=== PATIENT | male | born 1935 | race Caucasian/White ===

== ENCOUNTER → 2016-08-31 | Outpatient (CLI) | payer MEDICARE, OTHER | LOC: MW.CHORTHO 08:00 | PROVIDERS: ATTEND Physician Assistant | DX: M17.11 Unilateral primary osteoarthritis, right knee (principal) | CPT/HCPCS: 20610; G0463; J1040 ==

== ENCOUNTER → 2016-09-04 | Outpatient (CLI) | payer MEDICARE, OTHER | LOC: MW.CHORTHO 08:00 | PROVIDERS: ATTEND Physician Assistant | DX: M17.11 Unilateral primary osteoarthritis, right knee (principal) | CPT/HCPCS: 20610; G0463; J7326 ==

== ENCOUNTER 2019-03-18 22:05 | Observation (INO) | payer MEDICARE, OTHER ==
[2019-03-18] MEDS ORDERED: Sodium Chloride 0.9% 10 ML Syringe FLUSH PRN (22:20)
[2019-03-18] MEDS ORDERED: Sodium Chloride 0.9% 2.5 ML Syringe FLUSH PRN (22:20)
--- NOTE | 2019-03-18 22:22 | EDM.PDOC ---
ED HPI GENERAL MEDICAL PROBLEM - General Chief Complaint: Neurological Problem Stated Complaint: LOSS OF CONSCIOUS Time Seen by Provider: 03/18/19 22:08 - History of Present Illness INITIAL COMMENTS - FREE TEXT/NARRATIVE: HISTORY AND PHYSICAL: History of present illness: The patient is a 83-year-old male with a history of Parkinson's hypertension and hypercholesterolemia who presents via EMS after having an episode of syncope without trauma per the feeling hot and having too small episodes of diarrhea earlier today. According to the he saw the dentist earlier today and had a right upper molar extracted and did well but he did have 2 loose stools today. This evening he was seated and said he felt very hot they took his sweater off and then he had a several second reflux of consciousness without trauma and he seemed very sweaty. He came to and EMS was dispatched and they noticed that he was very drowsy and low on his consciousness level but they also noticed that he was bradycardic. He received 1 mg of atropine per them and has had a normal heart rate since that time. He had an episode of vomiting on arrival here to the ED but denies any abdominal pain or nausea currently. He denies any pain to his tooth extraction site and he was not given any pain medications per the at bedside. He had no complaints earlier of chest pain shortness of breath abdominal pain nausea vomiting fevers or chills and has had no upper respiratory symptoms. Here in the ED the patient follows commands but is somewhat drowsy and denies any complaints of pain currently Review of systems: As per history of present illness and below otherwise all systems reviewed and negative. Past medical history: As per history of present illness and as reviewed below otherwise noncontributory. Surgical history: As per history of present illness and as reviewed below otherwise noncontributory. Social history: No reported history of drug or alcohol abuse. Family history: As per history of present illness and as reviewed below otherwise noncontributory. Physical exam: General: Well-developed well-nourished mildly overweight man who is nontoxic and follows commands and is arousable. The patient's Ann Coma Scale is 13 by me. Patient has overall pale appearance HEENT: Atraumatic, normocephalic, pupils reactive, negative for conjunctival pallor or scleral icterus, mucous membranes tacky, throat clear, neck supple, nontender, trachea midline. At the right upper molar area there is an extraction site from the patient's tooth procedure today which is clean and dry without any bleeding or gum swelling and there is no evidence of any facial swelling nor any tenderness in this region. Lungs: Clear to auscultation with slightly diminished breath sounds in the bases , breath sounds equal bilaterally, chest nontender. Heart: S1S2, regular in rhythm on my evaluation and heart sounds are somewhat distant and hard to appreciate any murmurs, there are no overt negative for clicks, rubs, or JVD. Abdomen: Soft, nondistended, nontender. Negative for masses or hepatosplenomegaly. Negative for costovertebral tenderness. Pelvis: Stable nontender. Genitourinary: Deferred. Rectal: Deferred. Extremities: Atraumatic, negative for cords or calf pain. Neurovascular unremarkable. Neuro: Awake, alert, oriented but the patient is drowsy. Cranial nerves II through XII unremarkable. Cerebellum unremarkable. Motor and sensory unremarkable throughout. Exam nonfocal. Patient has good strength throughout 5/ 5 including supervisor mold cleaning and storage dorsi and plantar flexion all bilaterally Skin: There is no evidence of any rashes or lesions noted diaphoresis and turgor is normal Diagnostics: EKG CBC CMP troponin UA with reflex INR amylase lipase TSH lactic acid influenza chest x-ray CT scan of the head Therapeutics: IV O2 monitor gentle IV fluids Zofran Patient feels significantly improved here and is much more alert and interactive and is coloring looks better. is also stating that he does look improved. As I cannot explain tinnitus events and he did have a brief syncopal event I will speak with the hospitalist about observation on telemetry. [id number]: Case was discussed with Dr. Vyas who accepts the patient for observation admission. Impression: Episode of recurrent syncope, bradycardia by history resolved, altered mental status improved Definitive disposition and diagnosis as appropriate pending reevaluation and review of above. - Related Data Allergies Allergy/AdvReac Type Severity Reaction Status Date / Time No Known Allergies Allergy Verified 03/18/19 22:17 Home Meds: Home Meds Carbidopa/Levodopa [Carbidopa-Levodopa 25-100 Tab] 1 tab PO 5XDAY 03/18/19 [ History] Donepezil [Aricept] 1 tab PO BID 03/18/19 [History] Entacapone 1 tab PO 5XDAY 03/18/19 [History] Metoprolol Tartrate 50 mg PO DAILY 03/18/19 [History] QUEtiapine [SEROquel] 25 mg PO DAILY 03/18/19 [History] atorvaSTATin [Lipitor] 10 mg PO BEDTIME 03/18/19 [History] Past Medical History HEENT History: Reports: Macular Degeneration Cardiovascular History: Reports: Hypertension Musculoskeletal History: Reports: Osteoarthritis Neurological History: Reports: Parkinson's - Past Surgical History GI Surgical History: Reports: Hernia Repair/Other ED ROS GENERAL - Review of Systems Review Of Systems: Comprehensive ROS is negative, except as noted in HPI. ED EXAM, GENERAL - Physical Exam Exam: See Below (see Dictation) Course - Vital Signs Last Recorded V/S: Last Vital Signs Temp 35.3 C 03/18/19 22:05 Pulse 84 03/18/19 23:56 Resp 18 03/18/19 23:56 BP 133/65 03/18/19 23:56 Pulse Ox 99 03/18/19 23:41 - Orders/Labs/Meds Orders: Active Orders 24 hr Category Date Time Status Patient Status [ADT] Stat ADT 03/18/19 23:51 Active Cardiac Monitoring [RC] . DIRECTED Care 03/18/19 22:19 Active Oxygen Therapy, ED [RC] ASDIRECTED Care 03/18/19 22:19 Active Pulse Oximetry [RC] ASDIRECTED Care 03/18/19 22:19 Active Sodium Chloride 0.9% [Normal Saline] 1,000 ml Med 03/18/19 22:30 Active IV ASDIRECTED Sodium Chloride 0.9% [Saline Flush] Med 03/18/19 22:20 Active 10 ml FLUSH ASDIRECTED PRN Sodium Chloride 0.9% [Saline Flush] Med 03/18/19 22:20 Active 2.5 ml FLUSH ASDIRECTED PRN Saline Lock Insert [OM.PC] Stat Oth 03/18/19 22:19 Ordered Medication Orders Sodium Chloride (Normal Saline) 1,000 mls @ 100 mls/hr IV ASDIRECTED THIERRY Last Infusion: 03/18/19 23:12 Dose: 100 mls/hr Admin: 03/18/19 22:25 Dose: 100 mls/hr Sodium Chloride (Saline Flush) 10 ml FLUSH ASDIRECTED PRN PRN Reason: Keep Vein Open Sodium Chloride (Saline Flush) 2.5 ml FLUSH ASDIRECTED PRN PRN Reason: Keep Vein Open Labs: Laboratory Tests 03/18/19 03/18/19 03/18/19 Range/Units 22:15 22:15 22:15 WBC 9.84 (4.0-11.0) K/uL RBC 5.14 (4.50-5.90) M/uL Hgb 16.3 (13.0-17.0) g/dL Hct 47.5 (38.0-50.0) % MCV 92.4 (80.0-98.0) fL MCH 31.7 (27.0-32.0) pg MCHC 34.3 (31.0-37.0) g/dL RDW Std Deviation 51.1 (28.0-62.0) fl RDW Coeff of Alea 15 (11.0-15.0) % Plt Count 642 H (150-400) K/uL MPV 9.80 (7.40-12.00) fL Neut % (Auto) 72.7 (48.0-80.0) % Lymph % (Auto) 14.7 L (16.0-40.0) % Meagher % (Auto) 8.6 (0.0-15.0) % Eos % (Auto) 3.3 (0.0-7.0) % Baso % (Auto) 0.7 (0.0-1.5) % Neut # (Auto) 7.2 H (1.4-5.7) K/uL Lymph # (Auto) 1.5 (0.6-2.4) K/uL Meagher # (Auto) 0.9 H (0.0-0.8) K/uL Eos # (Auto) 0.3 (0.0-0.7) K/uL Baso # (Auto) 0.1 (0.0-0.1) K/uL Nucleated RBC % 0.0 /100WBC Nucleated RBCs # 0 K/uL INR 1.11 Lactate 1.8 (0.20-2.00) mmol/L Sodium (136-148) mmol/L Potassium (3.5-5.1) mmol/L Chloride (98-107) mmol/L Carbon Dioxide (21.0-32.0) mmol/L BUN (7.0-18.0) mg/dL Creatinine (0.8-1.3) mg/dL Est Cr Clr Drug Dosing mL/min Estimated GFR (MDRD) ml/min Glucose (74-106) mg/dL Calcium (8.5-10.1) mg/dL Total Bilirubin (0.2-1.0) mg/dL AST (15-37) IU/L ALT (14-63) IU/L Alkaline Phosphatase (46-116) U/L Troponin I (0.000-0.056) ng/mL Total Protein (6.4-8.2) g/dL Albumin (3.4-5.0) g/dL Globulin (2.6-4.0) g/dL Albumin/Globulin Ratio (0.9-1.6) Amylase (25-115) U/L Lipase (73-393) U/L TSH 3rd Generation (0.36-3.74) uIU/mL Urine Color Urine Appearance Urine pH (5.0-8.0) Ur Specific [place] (1.001-1.035) Urine Protein (NEGATIVE) mg/dL Urine Glucose (UA) (NEGATIVE) mg/dL Urine Ketones (NEGATIVE) mg/dL Urine Occult Blood (NEGATIVE) Urine Nitrite (NEGATIVE) Urine Bilirubin (NEGATIVE) Urine Urobilinogen (<2.0) EU/dL Ur Leukocyte Esterase (NEGATIVE) 03/18/19 03/18/19 Range/Units 22:15 23:00 WBC (4.0-11.0) K/uL RBC (4.50-5.90) M/uL Hgb (13.0-17.0) g/dL Hct (38.0-50.0) % MCV (80.0-98.0) fL MCH (27.0-32.0) pg MCHC (31.0-37.0) g/dL RDW Std Deviation (28.0-62.0) fl RDW Coeff of Alea (11.0-15.0) % Plt Count (150-400) K/uL MPV (7.40-12.00) fL Neut % (Auto) (48.0-80.0) % Lymph % (Auto) (16.0-40.0) % Meagher % (Auto) (0.0-15.0) % Eos % (Auto) (0.0-7.0) % Baso % (Auto) (0.0-1.5) % Neut # (Auto) (1.4-5.7) K/uL Lymph # (Auto) (0.6-2.4) K/uL Meagher # (Auto) (0.0-0.8) K/uL Eos # (Auto) (0.0-0.7) K/uL Baso # (Auto) (0.0-0.1) K/uL Nucleated RBC % /100WBC Nucleated RBCs # K/uL INR Lactate (0.20-2.00) mmol/L Sodium 140 (136-148) mmol/L Potassium 3.8 (3.5-5.1) mmol/L Chloride 106 (98-107) mmol/L Carbon Dioxide 22.2 (21.0-32.0) mmol/L BUN 12 (7.0-18.0) mg/dL Creatinine 1.1 (0.8-1.3) mg/dL Est Cr Clr Drug Dosing 52.29 mL/min Estimated GFR (MDRD) > 60.0 ml/min Glucose 141 H (74-106) mg/dL Calcium 8.4 L (8.5-10.1) mg/dL Total Bilirubin 0.8 (0.2-1.0) mg/dL AST 29 (15-37) IU/L ALT 8 L (14-63) IU/L Alkaline Phosphatase 85 (46-116) U/L Troponin I < 0.050 (0.000-0.056) ng/mL Total Protein 6.8 (6.4-8.2) g/dL Albumin 3.8 (3.4-5.0) g/dL Globulin 3.0 (2.6-4.0) g/dL Albumin/Globulin Ratio 1.3 (0.9-1.6) Amylase 65 (25-115) U/L Lipase 156 (73-393) U/L TSH 3rd Generation 2.84 (0.36-3.74) uIU/mL Urine Color YELLOW Urine Appearance CLEAR Urine pH 5.5 (5.0-8.0) Ur Specific [place] 1.025 (1.001-1.035) Urine Protein NEGATIVE (NEGATIVE) mg/dL Urine Glucose (UA) NEGATIVE (NEGATIVE) mg/dL Urine Ketones TRACE H (NEGATIVE) mg/dL Urine Occult Blood NEGATIVE (NEGATIVE) Urine Nitrite NEGATIVE (NEGATIVE) Urine Bilirubin NEGATIVE (NEGATIVE) Urine Urobilinogen 0.2 (<2.0) EU/dL Ur Leukocyte Esterase NEGATIVE (NEGATIVE) Meds: Medications Generic Name Dose Route Start Last Admin Trade Name Freq PRN Reason Stop Dose Admin Sodium Chloride 1,000 mls @ 100 mls/hr 03/18/19 22:30 03/18/19 23:12 Normal Saline IV 100 mls/hr ASDIRECTED THIERRY Infusion Sodium Chloride 10 ml 03/18/19 22:20 Saline Flush FLUSH ASDIRECTED PRN Keep Vein Open Sodium Chloride 2.5 ml 03/18/19 22:20 Saline Flush FLUSH ASDIRECTED PRN Keep Vein Open Discontinued Medications Generic Name Dose Route Start Last Admin Trade Name Freq PRN Reason Stop Dose Admin Ondansetron HCl 4 mg 03/18/19 22:24 03/18/19 22:57 Zofran IVPUSH 03/18/19 22:25 4 mg ONETIME ONE Administration Departure - Departure Time of Disposition: 23:51 Disposition: Refer to Observation Condition: Good Clinical Impression: Syncope Qualifiers: Syncope type: unspecified Qualified Code(s): R55 - Syncope and collapse Altered mental status Qualifiers: Altered mental status type: unspecified Qualified Code(s): R41.82 - Altered mental status, unspecified - Discharge Information Referrals: Jose M Navas MD [Primary Care Provider] - Forms: ED Department Discharge - My Orders Last 24 Hours: My Active Orders 03/18/19 22:19 Cardiac Monitoring [RC] . DIRECTED Oxygen Therapy, ED [RC] ASDIRECTED Pulse Oximetry [RC] ASDIRECTED Saline Lock Insert [OM.PC] Stat 03/18/19 22:20 Sodium Chloride 0.9% [Saline Flush] 10 ml FLUSH ASDIRECTED PRN Sodium Chloride 0.9% [Saline Flush] 2.5 ml FLUSH ASDIRECTED PRN 03/18/19 22:30 Sodium Chloride 0.9% [Normal Saline] 1,000 ml IV ASDIRECTED 03/18/19 23:51 Patient Status [ADT] Stat - Assessment/Plan Last 24 Hours: My Active Orders 03/18/19 22:19 Cardiac Monitoring [RC] . DIRECTED Oxygen Therapy, ED [RC] ASDIRECTED Pulse Oximetry [RC] ASDIRECTED Saline Lock Insert [OM.PC] Stat 03/18/19 22:20 Sodium Chloride 0.9% [Saline Flush] 10 ml FLUSH ASDIRECTED PRN Sodium Chloride 0.9% [Saline Flush] 2.5 ml FLUSH ASDIRECTED PRN 03/18/19 22:30 Sodium Chloride 0.9% [Normal Saline] 1,000 ml IV ASDIRECTED 03/18/19 23:51 Patient Status [ADT] Stat
[2019-03-18] MEDS ORDERED: Ondansetron 4 MG/2 ML SDV IVPUSH ONE (22:24)
[2019-03-18] MEDS: Sodium Chloride 0.9% 1,000 ML IV SCH (22:25)
[2019-03-18 22:59] LABS: BLOOD UREA NITROGEN,BUN 12 mg/dL (7.0-18.0); CARBON DIOXIDE,CO2 22.2 mmol/L (21.0-32.0); CHLORIDE,CL 106 mmol/L (98-107); GLUCOSE RANDOM 141 mg/dL (74-106); LIPASE 156 U/L (73-393); POTASSIUM,K 3.8 mmol/L (3.5-5.1); SODIUM,NA 140 mmol/L (136-148)
--- NOTE | 2019-03-18 23:01 | CR ---
INDICATION: Pain, shortness of breath, vomiting. COMPARISON: None available. FINDINGS: An erect single view of the chest was obtained at 22 49 hours. There is mild linear density in the right lung base consistent with atelectasis. There is mild eventration of the left hemidiaphragm. The rest of the chest is clear. The heart is mildly enlarged. The mediastinum is otherwise normal in appearance. The osseous structures are normal in appearance for the patient`s age. IMPRESSION: Mild linear atelectasis in the right lung base. Mild cardiomegaly. Dictated by Ishmael Guevara MD @ Mar 18 2019 10:58PM Signed by Dr. Ishmael Guevara @ Mar 18 2019 10:59PM
--- NOTE | 2019-03-18 23:04 | CT ---
INDICATION: Loss of consciousness. COMPARISON: None available. TECHNIQUE: CT examination of the head was performed with 3 mm thick axial sections without intravenous contrast. Images were obtained from the vertex of the skull through the skull base, and I examined the images with the brain and bone windows. Please note that all CT scans at this facility use dose modulation, iterative reconstruction, and/or weight-based dosing when appropriate to reduce radiation dose to as low as reasonably achievable. FINDINGS: : The brain is normal in appearance for the patient`s age on today`s study, with no sign of mass lesion, mass effect, hemorrhage, or edema. There is moderate dilatation of the ventricles and sulci representing age-appropriate atrophy. There is mild periventricular and subcortical white matter hypodensity from age appropriate small vessel ischemia. The visualized portions of the orbits are normal in appearance. The visualized portions of the paranasal sinuses and mastoids are clear. The osseous structures are normal in their appearance with no sign of abnormality in the skull base or calvarium. IMPRESSION: Normal noncontrast CT of the head for the patient`s age. Moderate, age-appropriate atrophy and mild, age-appropriate small-vessel ischemic changes. Please note that all CT scans at this facility use dose modulation, iterative reconstruction, and/or weight-based dosing when appropriate to reduce radiation dose to as low as reasonably achievable. Dictated by Ishmael Guevara MD @ Mar 18 2019 10:59PM Signed by Dr. Ishmael Guevara @ Mar 18 2019 11:02PM
[2019-03-19 05:48] LABS: CARBON DIOXIDE,CO2 24.6 mmol/L (21.0-32.0); POTASSIUM,K 5.8 mmol/L (3.5-5.1)
[2019-03-19] MEDS: Sodium Chloride 0.9% 1,000 ML IV SCH (06:33)
--- NOTE | 2019-03-19 08:10 | PCM.HP.2 ---
H&P History of Present Illness - General Date of Service: 03/19/19 Admit Problem/Dx: Admission Diagnosis/Problem Admission Diagnosis/Problem Syncope Source of Information: Patient History Limitations: Reports: No Limitations - History of Present Illness Initial Comments - Free Text/Narative: This 83 year old male with pmh of HTN and Parkinson's disease presented to the ED via EMS due to an event of syncope at home. He is unable to articulate what happened, at bedside to help. She he had a tooth extracted during the morning and then wsa more tired than normal in the evening. They got him in his pajamas and then were sitting back in his chair. He started complaining of being flushed and she noticed he was a little lethargic and out of it. Not entirely sure he passed out, she feels he was alert still just slow and lethargic to respond. EMS was called, upon arrival per their report, he was noted to be bradycardic and was given Atropine. states she had just given him his meds. He did have some nausea and emesis and also reports a couple softer stools earlier in the day. She denies any other changes recently with his mentation. Reports this morning, he is back at baseline. In the ED ,9840 and platelets 642. CXR shows linear atelectaiss R L base and cardiomegaly. Headt CT negative. VS stable. UA negative. He was admitted for near syncope. PCP, Dr Navas. - Related Data Allergies/Adverse Reactions: Allergies Allergy/AdvReac Type Severity Reaction Status Date / Time No Known Allergies Allergy Verified 03/19/19 00:55 Home Medications: Home Meds Carbidopa/Levodopa [Carbidopa-Levodopa 25-100 Tab] 25 - 100 mg PO 5XDAY [History] Donepezil [Aricept] 5 mg PO DAILY@1200 03/18/19 [History] Entacapone 200 mg PO 5XDAY 03/18/19 [History] QUEtiapine [SEROquel] 50 mg PO BEDTIME 03/18/19 [History] atorvaSTATin [Lipitor] 10 mg PO BEDTIME 03/18/19 [History] Aspirin [Adult Low Dose Aspirin EC] 81 mg PO DAILY 03/19/19 [History] Donepezil [Aricept] 5 mg PO BEDTIME PRN 03/19/19 [History] Metoprolol Succinate [Toprol XL 50mg] 50 mg PO DAILY 03/19/19 [History] Rasagiline Mesylate 1 mg PO DAILY@1200 03/19/19 [History] Past Medical History HEENT History: Reports: Macular Degeneration Cardiovascular History: Reports: High Cholesterol, Hypertension, Syncope Respiratory History: Reports: None Gastrointestinal History: Reports: Other (See Below) Other Gastrointestinal History: Hernia Genitourinary History: Reports: None Musculoskeletal History: Reports: Osteoarthritis Neurological History: Reports: Parkinson's Psychiatric History: Reports: None Endocrine/Metabolic History: Reports: None Insulin Pump Model and Quantitative Analyst Developer: None Hematologic History: Reports: None Immunologic History: Reports: None Oncologic (Cancer) History: Reports: None Dermatologic History: Reports: None - Infectious Disease History Infectious Disease History: Reports: None - Past Surgical History Head Surgeries/Procedures: Reports: None HEENT Surgical History: Reports: Other (See Below) Other HEENT Surgeries/Procedures: Tooth extraction GI Surgical History: Reports: Hernia Repair/Other Social & Family History - Family History Family Medical History: Noncontributory - Tobacco Use Smoking Status *Q: Never Smoker Second Hand Smoke Exposure: No - Caffeine Use Caffeine Use: Reports: Coffee, Soda - Recreational Drug Use Recreational Drug Use: No H&P Review of Systems - Review of Systems: Review Of Systems: See Below (From mostly) General: Reports: No Symptoms. Denies: Fever, Chills, Malaise, Weakness HEENT: Reports: No Symptoms Pulmonary: Reports: No Symptoms. Denies: Shortness of Breath Cardiovascular: Reports: Syncope. Denies: Chest Pain Gastrointestinal: Reports: No Symptoms, Nausea (at home, not currently), Vomiting. Denies: Abdominal Pain, Black Stool, Bloody Stool, Diarrhea Genitourinary: Reports: No Symptoms Musculoskeletal: Reports: No Symptoms. Denies: Neck Pain Skin: Reports: No Symptoms Psychiatric: Reports: No Symptoms Neurological: Reports: No Symptoms Hematologic/Lymphatic: Reports: No Symptoms Immunologic: Reports: No Symptoms Exam - Exam Exam: See Below - Vital Signs Vital Signs: Last Vital Signs Temp 98.4 F 03/19/19 07:52 Pulse 74 03/19/19 07:52 Resp 20 03/19/19 07:52 BP 177/82 H 03/19/19 07:52 Pulse Ox 94 L 03/19/19 07:52 Weight: 90.718 kg - Exam General: Alert, Oriented, Cooperative HEENT: Conjunctiva Clear, Mucosa Moist & [place], Posterior Pharynx Clear Lungs: Clear to Auscultation, Normal Respiratory Effort Cardiovascular: Regular Rate, Regular Rhythm. No: Systolic Murmur GI/Abdominal Exam: Normal Bowel Sounds, Soft, Non-Tender Extremities: Normal Inspection, Normal Range of Motion, Non-Tender, Pedal Edema (+1 pitting to trace on feet) Neuro Extensive - Mental Status: Alert, Other (masked facies) Psychiatric: Alert, Normal Affect, Normal Mood - Patient Data Lab Results Last 24 hrs: Laboratory Results - last 24 hr 03/18/19 03/18/19 03/18/19 Range/Units 22:15 22:15 22:15 WBC 9.84 (4.0-11.0) K/uL RBC 5.14 (4.50-5.90) M/uL Hgb 16.3 (13.0-17.0) g/dL Hct 47.5 (38.0-50.0) % MCV 92.4 (80.0-98.0) fL MCH 31.7 (27.0-32.0) pg MCHC 34.3 (31.0-37.0) g/dL RDW Std Deviation 51.1 (28.0-62.0) fl RDW Coeff of Alea 15 (11.0-15.0) % Plt Count 642 H (150-400) K/uL MPV 9.80 (7.40-12.00) fL Neut % (Auto) 72.7 (48.0-80.0) % Lymph % (Auto) 14.7 L (16.0-40.0) % [place] % (Auto) 8.6 (0.0-15.0) % Eos % (Auto) 3.3 (0.0-7.0) % Baso % (Auto) 0.7 (0.0-1.5) % Neut # (Auto) 7.2 H (1.4-5.7) K/uL Lymph # (Auto) 1.5 (0.6-2.4) K/uL [place] # (Auto) 0.9 H (0.0-0.8) K/uL Eos # (Auto) 0.3 (0.0-0.7) K/uL Baso # (Auto) 0.1 (0.0-0.1) K/uL Nucleated RBC % 0.0 /100WBC Nucleated RBCs # 0 K/uL INR 1.11 Lactate 1.8 (0.20-2.00) mmol/L Sodium (136-148) mmol/L Potassium (3.5-5.1) mmol/L Chloride (98-107) mmol/L Carbon Dioxide (21.0-32.0) mmol/L BUN (7.0-18.0) mg/dL Creatinine (0.8-1.3) mg/dL Est Cr Clr Drug Dosing mL/min Estimated GFR (MDRD) ml/min Glucose (74-106) mg/dL Calcium (8.5-10.1) mg/dL Total Bilirubin (0.2-1.0) mg/dL AST (15-37) IU/L ALT (14-63) IU/L Alkaline Phosphatase (46-116) U/L Troponin I (0.000-0.056) ng/mL Total Protein (6.4-8.2) g/dL Albumin (3.4-5.0) g/dL Globulin (2.6-4.0) g/dL Albumin/Globulin Ratio (0.9-1.6) Amylase (25-115) U/L Lipase (73-393) U/L TSH 3rd Generation (0.36-3.74) uIU/mL Urine Color Urine Appearance Urine pH (5.0-8.0) Ur Specific [place] (1.001-1.035) Urine Protein (NEGATIVE) mg/dL Urine Glucose (UA) (NEGATIVE) mg/dL Urine Ketones (NEGATIVE) mg/dL Urine Occult Blood (NEGATIVE) Urine Nitrite (NEGATIVE) Urine Bilirubin (NEGATIVE) Urine Urobilinogen (<2.0) EU/dL Ur Leukocyte Esterase (NEGATIVE) 03/18/19 03/18/19 03/19/19 Range/Units 22:15 23:00 05:05 WBC 11.49 H (4.0-11.0) K/uL RBC 5.26 (4.50-5.90) M/uL Hgb 16.7 (13.0-17.0) g/dL Hct 49.8 (38.0-50.0) % MCV 94.7 (80.0-98.0) fL MCH 31.7 (27.0-32.0) pg MCHC 33.5 (31.0-37.0) g/dL RDW Std Deviation 52.8 (28.0-62.0) fl RDW Coeff of Alea 15 (11.0-15.0) % Plt Count 714 H (150-400) K/uL MPV 10.00 (7.40-12.00) fL Neut % (Auto) 76.2 (48.0-80.0) % Lymph % (Auto) 13.7 L (16.0-40.0) % [place] % (Auto) 7.4 (0.0-15.0) % Eos % (Auto) 2.3 (0.0-7.0) % Baso % (Auto) 0.4 (0.0-1.5) % Neut # (Auto) 8.8 H (1.4-5.7) K/uL Lymph # (Auto) 1.6 (0.6-2.4) K/uL [place] # (Auto) 0.9 H (0.0-0.8) K/uL Eos # (Auto) 0.3 (0.0-0.7) K/uL Baso # (Auto) 0.1 (0.0-0.1) K/uL Nucleated RBC % 0.0 /100WBC Nucleated RBCs # 0 K/uL INR Lactate (0.20-2.00) mmol/L Sodium 140 (136-148) mmol/L Potassium 3.8 (3.5-5.1) mmol/L Chloride 106 (98-107) mmol/L Carbon Dioxide 22.2 (21.0-32.0) mmol/L BUN 12 (7.0-18.0) mg/dL Creatinine 1.1 (0.8-1.3) mg/dL Est Cr Clr Drug Dosing 52.29 mL/min Estimated GFR (MDRD) > 60.0 ml/min Glucose 141 H (74-106) mg/dL Calcium 8.4 L (8.5-10.1) mg/dL Total Bilirubin 0.8 (0.2-1.0) mg/dL AST 29 (15-37) IU/L ALT 8 L (14-63) IU/L Alkaline Phosphatase 85 (46-116) U/L Troponin I < 0.050 (0.000-0.056) ng/mL Total Protein 6.8 (6.4-8.2) g/dL Albumin 3.8 (3.4-5.0) g/dL Globulin 3.0 (2.6-4.0) g/dL Albumin/Globulin Ratio 1.3 (0.9-1.6) Amylase 65 (25-115) U/L Lipase 156 (73-393) U/L TSH 3rd Generation 2.84 (0.36-3.74) uIU/mL Urine Color YELLOW Urine Appearance CLEAR Urine pH 5.5 (5.0-8.0) Ur Specific [place] 1.025 (1.001-1.035) Urine Protein NEGATIVE (NEGATIVE) mg/dL Urine Glucose (UA) NEGATIVE (NEGATIVE) mg/dL Urine Ketones TRACE H (NEGATIVE) mg/dL Urine Occult Blood NEGATIVE (NEGATIVE) Urine Nitrite NEGATIVE (NEGATIVE) Urine Bilirubin NEGATIVE (NEGATIVE) Urine Urobilinogen 0.2 (<2.0) EU/dL Ur Leukocyte Esterase NEGATIVE (NEGATIVE) 03/19/19 Range/Units 05:05 WBC (4.0-11.0) K/uL RBC (4.50-5.90) M/uL Hgb (13.0-17.0) g/dL Hct (38.0-50.0) % MCV (80.0-98.0) fL MCH (27.0-32.0) pg MCHC (31.0-37.0) g/dL RDW Std Deviation (28.0-62.0) fl RDW Coeff of Alea (11.0-15.0) % Plt Count (150-400) K/uL MPV (7.40-12.00) fL Neut % (Auto) (48.0-80.0) % Lymph % (Auto) (16.0-40.0) % [place] % (Auto) (0.0-15.0) % Eos % (Auto) (0.0-7.0) % Baso % (Auto) (0.0-1.5) % Neut # (Auto) (1.4-5.7) K/uL Lymph # (Auto) (0.6-2.4) K/uL [place] # (Auto) (0.0-0.8) K/uL Eos # (Auto) (0.0-0.7) K/uL Baso # (Auto) (0.0-0.1) K/uL Nucleated RBC % /100WBC Nucleated RBCs # K/uL INR Lactate (0.20-2.00) mmol/L Sodium 144 (136-148) mmol/L Potassium 5.8 H (3.5-5.1) mmol/L Chloride 109 H (98-107) mmol/L Carbon Dioxide 24.6 (21.0-32.0) mmol/L BUN 11 (7.0-18.0) mg/dL Creatinine 1.2 (0.8-1.3) mg/dL Est Cr Clr Drug Dosing 47.93 mL/min Estimated GFR (MDRD) 57.5 ml/min Glucose 111 H (74-106) mg/dL Calcium 9.3 (8.5-10.1) mg/dL Total Bilirubin (0.2-1.0) mg/dL AST (15-37) IU/L ALT (14-63) IU/L Alkaline Phosphatase (46-116) U/L Troponin I (0.000-0.056) ng/mL Total Protein (6.4-8.2) g/dL Albumin (3.4-5.0) g/dL Globulin (2.6-4.0) g/dL Albumin/Globulin Ratio (0.9-1.6) Amylase (25-115) U/L Lipase (73-393) U/L TSH 3rd Generation (0.36-3.74) uIU/mL Urine Color Urine Appearance Urine pH (5.0-8.0) Ur Specific [place] (1.001-1.035) Urine Protein (NEGATIVE) mg/dL Urine Glucose (UA) (NEGATIVE) mg/dL Urine Ketones (NEGATIVE) mg/dL Urine Occult Blood (NEGATIVE) Urine Nitrite (NEGATIVE) Urine Bilirubin (NEGATIVE) Urine Urobilinogen (<2.0) EU/dL Ur Leukocyte Esterase (NEGATIVE) Result Diagrams: 03/19/19 05:05 03/19/19 10:33 Justin Results Last 24 hrs: Microbiology 03/18/19 22:30 Influenza Type A Antigen Screen - Final Nasopharyngeal Swab NEGATIVE INFLUENZA A VIRUS AG REFERENCE RANGE: NEGATIVE Influenza Type B Antigen Screen - Final NEGATIVE INFLUENZA B VIRUS AG REFERENCE RANGE: NEGATIVE EKG INTERPRETATION Rhythm: NSR (lizabeth 50s) P-Wave: Present QRS: Normal ST-T: Normal QT: Normal - Problem List (1) Syncope SNOMED Code(s): 829754813 ICD Code: R55 - SYNCOPE AND COLLAPSE Status: Acute Current Visit: Yes Qualifiers: Syncope type: unspecified Qualified Code(s): R55 - Syncope and collapse (2) HTN (hypertension) SNOMED Code(s): 89027277 ICD Code: I10 - ESSENTIAL (PRIMARY) HYPERTENSION Status: Chronic Current Visit: Yes Qualifiers: Hypertension type: essential hypertension Qualified Code(s): I10 - Essential (primary) hypertension (3) Parkinson disease SNOMED Code(s): 12763784 ICD Code: G20 - PARKINSON'S DISEASE Status: Chronic Current Visit: Yes (4) Unsteady gait SNOMED Code(s): 801506880, 044600031 ICD Code: R26.81 - UNSTEADINESS ON FEET Status: Chronic Current Visit: Yes Problem List Initiated/Reviewed/Updated: Yes Orders Last 24hrs: Active Orders 24 hr Category Date Time Status Patient Status [ADT] Stat ADT 03/18/19 23:51 Active Oxygen Therapy, ED [RC] ASDIRECTED Care 03/18/19 22:19 Active Pulse Oximetry [RC] ASDIRECTED Care 03/18/19 22:19 Active Telemetry Monitoring [Cardiac Monitoring] [RC] . Care 03/19/19 01:10 Active DIRECTED Regular Diet [DIET] Diet 03/19/19 Breakfast Active Carbidopa/Levodopa [Sinemet 25-100 mg] Med 03/19/19 08:00 Active 1 tab PO 0700,1000,1300,1600 Carbidopa/Levodopa [Sinemet 25-100 mg] Med 03/19/19 19:00 Active 1 tab PO 1900 Patient's Own Medication [Ptom] Med 03/19/19 19:00 Active 0 each PO 1900 Patient's Own Medication [Ptom] Med 03/19/19 08:30 Active 1 each PO 0700,1000,1300,1600 Sodium Chloride 0.9% [Normal Saline] 1,000 ml Med 03/18/19 22:30 Active IV ASDIRECTED Sodium Chloride 0.9% [Saline Flush] Med 03/18/19 22:20 Active 10 ml FLUSH ASDIRECTED PRN Sodium Chloride 0.9% [Saline Flush] Med 03/18/19 22:20 Active 2.5 ml FLUSH ASDIRECTED PRN Saline Lock Insert [OM.PC] Stat Oth 03/18/19 22:19 Ordered Medication Orders Carbidopa/Levodopa (Sinemet 25-100 Mg) 1 tab PO 0700,1000,1300,1600 THIERRY Carbidopa/Levodopa (Sinemet 25-100 Mg) 1 tab PO 1900 THIERRY Sodium Chloride (Normal Saline) 1,000 mls @ 100 mls/hr IV ASDIRECTED THIERRY Last Admin: 03/19/19 06:33 Dose: 100 mls/hr Infusion: 03/19/19 06:33 Dose: 100 mls/hr Infusion: 03/18/19 23:12 Dose: 100 mls/hr Admin: 03/18/19 22:25 Dose: 100 mls/hr Entacapone 200 Mg 1 each PO 0700,1000,1300,1600 THIERRY Entacapone 200 Mg 0 each PO 1900 THIERRY Sodium Chloride (Saline Flush) 10 ml FLUSH ASDIRECTED PRN PRN Reason: Keep Vein Open Sodium Chloride (Saline Flush) 2.5 ml FLUSH ASDIRECTED PRN PRN Reason: Keep Vein Open Assessment/Plan Comment:: This 83 year old male admitted with near syncope vs syncope. 1. Syncope: Bradycardia noted with EMS, so far HR 50-80s. Will hold Metoprolol due to bradycardia. Monitor on telemetry. No chest pain or lightheadedness. No recurrent syncope. No Orthostatic hypotension noted. Given IVFs in ED. 2. HTN: Elevated, family report it is normally elevate. Holding metoprolol due to HR. Will start low dose Lisinopril 10 mg and monitor. Goal SBPO 140-150 3. Parkinsons: Stable, continue home medication regimen per reports. VTE prophylaxis: SCDs Dispo: 1 day, likely home in am if remains stable. Hyperkalemia noted this morning, elevated significantly from admit. Repeat K+ 4.1. No change currently. - Mortality Measure Prognosis:: Good
[2019-03-19] MEDS: Carbidopa/Levodopa 25-100 MG Tab PO SCH ×5 (08:15→18:53)
[2019-03-19 10:59] LABS: BLOOD UREA NITROGEN,BUN 13 mg/dL (7.0-18.0); CARBON DIOXIDE,CO2 25.4 mmol/L (21.0-32.0); CHLORIDE,CL 107 mmol/L (98-107); GLUCOSE RANDOM 122 mg/dL (74-106); POTASSIUM,K 4.1 mmol/L (3.5-5.1); SODIUM,NA 143 mmol/L (136-148)
[2019-03-19] MEDS ORDERED: Donepezil 5 MG Tab PO PRN (11:48)
[2019-03-19] MEDS: Rasagiline Mesylate [Rasagiline Mesylate] 1 MG PO SCH (12:16)
[2019-03-19] MEDS: Donepezil 5 MG Tab PO SCH (12:19)
[2019-03-19] MEDS ORDERED: Acetaminophen 325 MG Tab PO PRN (14:33)
[2019-03-19] MEDS: Lisinopril 10 MG Tab PO SCH (14:39)
[2019-03-19] MEDS: ENTACAPONE 200 MG PO SCH (18:53)
[2019-03-19] MEDS ORDERED: Donepezil 5 MG Tab PO SCH (21:00)
[2019-03-19] MEDS: QUEtiapine 25 MG Tab PO SCH (21:14)
[2019-03-20 06:42] LABS: CARBON DIOXIDE,CO2 26.3 mmol/L (21.0-32.0)
[2019-03-20] MEDS: Carbidopa/Levodopa 25-100 MG Tab PO SCH ×6 (06:58→21:32)
[2019-03-20] MEDS: Lisinopril 10 MG Tab PO SCH (08:42)
--- NOTE | 2019-03-20 08:58 | CR ---
INDICATION: Leukocytosis COMPARISON: none TECHNIQUE: Portable AP erect chest performed at 8:38 a.m. FINDINGS: There are peribronchial opacities within the right lung base which could reflect an early pneumonia. Lungs are otherwise clear. There is stable tortuosity and ectasia of the thoracic aorta. The heart, mediastinum and pulmonary vessels are of normal size. There is no evidence of pleural fluid. IMPRESSION: Peribronchial opacities within the right lung base which could reflect early pneumonia. Dictated by Henry Bravo MD @ Mar 20 2019 8:55AM Signed by Dr. Henry Bravo @ Mar 20 2019 8:57AM
[2019-03-20] MEDS: Levofloxacin/Dextrose 5%-Water 750 MG in Premix Bag 1 BAG IV SCH (09:51)
--- NOTE | 2019-03-20 09:57 | PCM.PN ---
- General Info Date of Service: 03/20/19 Admission Dx/Problem (Free Text): Admission Diagnosis/Problem Admission Diagnosis/Problem Syncope Subjective Update: Feeling ok today, wants to go home. Was very anxious this morning waking up with no family, but better now. No cough, no fever or dyspnea. No complaints this morning. Functional Status: Reports: Pain Controlled, Tolerating Diet, Ambulating, Urinating - Review of Systems HEENT: Reports: No Symptoms. Denies: Headaches, Rhinitis, Visual Changes Pulmonary: Reports: No Symptoms. Denies: Shortness of Breath Cardiovascular: Reports: No Symptoms. Denies: Chest Pain Gastrointestinal: Reports: No Symptoms. Denies: Abdominal Pain, Nausea, Vomiting Musculoskeletal: Reports: No Symptoms Skin: Reports: No Symptoms Neurological: Reports: No Symptoms Psychiatric: Reports: No Symptoms - Patient Data Vitals - Most Recent: Last Vital Signs Temp 99.4 F 03/20/19 07:10 Pulse 101 H 03/20/19 07:10 Resp 18 03/20/19 07:10 BP 137/75 03/20/19 08:42 Pulse Ox 91 L 03/20/19 07:10 Orthostatic Blood Pressure [ 159/69 Standing] Orthostatic Blood Pressure [ 119/66 Sitting] Orthostatic Blood Pressure [ 133/70 Supine] Weight - Most Recent: 90.718 kg I&O - Last 24 Hours: Intake & Output 03/19/19 03/20/19 03/20/19 22:59 06:59 14:59 Intake Total 750 650 Output Total 200 Balance 750 450 Lab Results Last 24 Hours: Laboratory Results - last 24 hr 03/19/19 03/20/19 03/20/19 Range/Units 10:33 05:13 05:13 WBC 18.04 H (4.0-11.0) K/uL RBC 5.02 (4.50-5.90) M/uL Hgb 16.0 (13.0-17.0) g/dL Hct 47.2 (38.0-50.0) % MCV 94.0 (80.0-98.0) fL MCH 31.9 (27.0-32.0) pg MCHC 33.9 (31.0-37.0) g/dL RDW Std Deviation 52.8 (28.0-62.0) fl RDW Coeff of Alea 15 (11.0-15.0) % Plt Count 678 H (150-400) K/uL MPV 9.80 (7.40-12.00) fL Neut % (Auto) 83.6 H (48.0-80.0) % Lymph % (Auto) 7.3 L (16.0-40.0) % [place] % (Auto) 7.5 (0.0-15.0) % Eos % (Auto) 1.3 (0.0-7.0) % Baso % (Auto) 0.3 (0.0-1.5) % Neut # (Auto) 15.1 H (1.4-5.7) K/uL Lymph # (Auto) 1.3 (0.6-2.4) K/uL [place] # (Auto) 1.4 H (0.0-0.8) K/uL Eos # (Auto) 0.2 (0.0-0.7) K/uL Baso # (Auto) 0.1 (0.0-0.1) K/uL Nucleated RBC % 0.0 /100WBC Nucleated RBCs # 0 K/uL Sodium 143 142 (136-148) mmol/L Potassium 4.1 4.0 (3.5-5.1) mmol/L Chloride 107 106 (98-107) mmol/L Carbon Dioxide 25.4 26.3 (21.0-32.0) mmol/L BUN 13 14 (7.0-18.0) mg/dL Creatinine 1.1 1.2 (0.8-1.3) mg/dL Est Cr Clr Drug Dosing 52.29 47.93 mL/min Estimated GFR (MDRD) > 60.0 57.5 ml/min Glucose 122 H 94 (74-106) mg/dL Calcium 8.6 8.8 (8.5-10.1) mg/dL Med Orders - Current: Current Medications Acetaminophen (Tylenol) 650 mg PO Q4H PRN PRN Reason: Pain Carbidopa/Levodopa (Sinemet 25-100 Mg) 1 tab PO 0700,1000,1300,1600 [facility] Last Admin: 03/20/19 09:19 Dose: 1 tab Carbidopa/Levodopa (Sinemet 25-100 Mg) 1 tab PO 1900 [facility] Last Admin: 03/19/19 18:53 Dose: 1 tab Donepezil HCl (Aricept) 5 mg PO DAILY@1200 [facility] Last Admin: 03/19/19 12:19 Dose: 5 mg Donepezil HCl (Aricept) 5 mg PO BEDTIME PRN PRN Reason: MEMORY Levofloxacin/Dextrose 750 mg/ (Premix) 150 mls @ 100 mls/hr IV Q24H [facility] Last Admin: 03/20/19 09:51 Dose: 100 mls/hr Lisinopril (Prinivil) 10 mg PO DAILY [facility] Last Admin: 03/20/19 08:42 Dose: 10 mg Entacapone 200 Mg 1 each PO 0700,1000,1300,1600 [facility] Last Admin: 03/20/19 09:19 Dose: 1 each Entacapone 200 Mg 0 each PO 1900 [facility] Last Admin: 03/19/19 18:53 Dose: 1 each Rasagiline Mesylate [Rasagiline Mesylate ] 1 Mg 1 each PO DAILY@1200 [facility] Last Admin: 03/19/19 12:16 Dose: 1 each Quetiapine Fumarate (Seroquel) 50 mg PO BEDTIME [facility] Last Admin: 03/19/19 21:14 Dose: 50 mg Sodium Chloride (Saline Flush) 10 ml FLUSH ASDIRECTED PRN PRN Reason: Keep Vein Open Sodium Chloride (Saline Flush) 2.5 ml FLUSH ASDIRECTED PRN PRN Reason: Keep Vein Open Discontinued Medications Donepezil HCl (Aricept) 5 mg PO BID [facility] Sodium Chloride (Normal Saline) 1,000 mls @ 100 mls/hr IV ASDIRECTED [facility] Last Admin: 03/19/19 06:33 Dose: 100 mls/hr Ondansetron HCl (Zofran) 4 mg IVPUSH ONETIME ONE Stop: 03/18/19 22:25 Last Admin: 03/18/19 22:57 Dose: 4 mg - Exam General: Alert, Oriented, Cooperative Lungs: Normal Respiratory Effort, Crackles (fine crackles R lung base) Cardiovascular: Regular Rate, Regular Rhythm GI/Abdominal Exam: Normal Bowel Sounds, Soft Back Exam: Normal Inspection, Full Range of Motion Extremities: Normal Inspection, Normal Range of Motion, Non-Tender, No Pedal Edema Neurological: No New Focal Deficit Psy/Mental Status: Alert, Normal Affect, Normal Mood - Problem List & Annotations (1) Syncope SNOMED Code(s): 821013014 Code(s): R55 - SYNCOPE AND COLLAPSE Status: Acute Current Visit: Yes Qualifiers: Syncope type: unspecified Qualified Code(s): R55 - Syncope and collapse (2) HTN (hypertension) SNOMED Code(s): 08466305 Code(s): I10 - ESSENTIAL (PRIMARY) HYPERTENSION Status: Chronic Current Visit: Yes Qualifiers: Hypertension type: essential hypertension Qualified Code(s): I10 - Essential (primary) hypertension (3) Parkinson disease SNOMED Code(s): 56374298 Code(s): G20 - PARKINSON'S DISEASE Status: Chronic Current Visit: Yes (4) Unsteady gait SNOMED Code(s): 549713159, 849983736 Code(s): R26.81 - UNSTEADINESS ON FEET Status: Chronic Current Visit: Yes - Problem List Review Problem List Initiated/Reviewed/Updated: Yes - My Orders Last 24 Hours: My Active Orders 03/19/19 10:10 Orthostatic Vital Signs [RC] ASDIRECTED 03/19/19 12:00 Donepezil [Aricept] 5 mg PO DAILY@1200 Patient's Own Medication [Ptom] 1 each PO DAILY@1200 03/19/19 13:45 Lisinopril [Prinivil] 10 mg PO DAILY 03/19/19 14:31 IS (RT) [RT Incentive Spirometry] [RC] Q1HWA 03/19/19 14:33 Acetaminophen [Tylenol] 650 mg PO Q4H PRN 03/19/19 21:00 QUEtiapine [SEROqueL] 50 mg PO BEDTIME 03/20/19 09:30 Levofloxacin/Dextrose 5%-Water [Levaquin in D5W 750 MG/150 ML] 750 mg Premix Bag 1 bag IV Q24H - Plan Plan:: This 83 year old male admitted with near syncope vs syncope. 1. CAP: leukocytosis elevated this morning. CAP likely present on admission, but CXR negative on admission. Today shows Opacities in R peribronchial. Will start Levaquin 750 mg 2. Syncope: HR 90s. Held Metoprolol due to bradycardia. No arrhythmias noted on telemetry. No chest pain or lightheadedness. No recurrent syncope. No Orthostatic hypotension noted. 3. HTN: Lisinopril started yesterday. BP improved. Will monitor. 4. Parkinsons: Stable, continue home medication regimen per reports. Keep up with physical activity. Consult PT VTE prophylaxis: SCDs Dispo: 1 day, likely home in am if remains stable.
[2019-03-20] MEDS ORDERED: Sodium Chloride 0.9% 1,000 ML IV SCH (11:30)
[2019-03-20] MEDS: Donepezil 5 MG Tab PO SCH (11:37)
[2019-03-20] MEDS: Rasagiline Mesylate [Rasagiline Mesylate] 1 MG PO SCH (11:37)
[2019-03-20] MEDS ORDERED: Magnesium Sulfate/Water 2 GM in Premix Bag 1 BAG IV ONE (15:23)
[2019-03-20] MEDS: ENTACAPONE 200 MG PO SCH (18:17)
[2019-03-20] MEDS: QUEtiapine 25 MG Tab PO SCH (20:28)
[2019-03-21] MEDS: Carbidopa/Levodopa 25-100 MG Tab PO SCH ×3 (06:24→12:33)
[2019-03-21 06:53] LABS: CARBON DIOXIDE,CO2 25.9 mmol/L (21.0-32.0)
[2019-03-21] MEDS ORDERED: Ondansetron 4 MG Tab.DIS PO PRN (07:31)
[2019-03-21] MEDS: Lisinopril 10 MG Tab PO SCH (08:41)
[2019-03-21] MEDS: Levofloxacin/Dextrose 5%-Water 750 MG in Premix Bag 1 BAG IV SCH (09:44)
[2019-03-21] MEDS: Rasagiline Mesylate [Rasagiline Mesylate] 1 MG PO SCH (12:33)
[2019-03-21] MEDS: Donepezil 5 MG Tab PO SCH (12:33)
--- NOTE | 2019-03-21 13:21 | PCM.DCSUM1 ---
<Gael Mcgill - Last Filed: 03/21/19 21:23> Discharge Summary - Hospital Course Free Text/Narrative:: 83-year-old male admitted for near syncope vs syncope. He has a PMH of HTN and parkinson's disease. On admission, per EMS patient noted to have bradycardia with HR in the 50's. CT head negative. Metoprolol was held on admission. Patient started on lisinopril for HTN. No recurrence of near syncope during hospitalization. Patient noted to have leukocytosis on second day of hospitalization. CAP was likely present on admission but initial CXR negative. Repeat CXR showed right lower lobe opacities. Patient started on levaquin. On day of discharge, leukocytosis improved and patient reported feeling better. Discharged on levaquin 750 daily x 5 days to complete 7 day course. Also discharged on lisinopril 20 mg daily for HTN. Given flu shot prior to discharge. Recommend pneumonia vaccine when following up with PCP. - Discharge Data Discharge Date: 03/21/19 Discharge Disposition: Home, Self-Care 01 Condition: Fair - Referral to Home Health Primary Care Physician: Jose M Navas MD - Patient Summary/Data Consults: Consultations 03/20/19 10:40 Consult to Home Health [CONS] Routine Consult to Physical Therapy [PT Evaluation and Treatment] [CONS] Routine - Patient Instructions Diet: Heart Healthy Diet Activity: As Tolerated Notify Provider of: Fever, Increased Pain, Swelling and Redness, Drainage, Nausea and/or Vomiting - Discharge Plan *PRESCRIPTION DRUG MONITORING PROGRAM REVIEWED*: Not Applicable *COPY OF PRESCRIPTION DRUG MONITORING REPORT IN PATIENT MARK ANTHONY: Not Applicable Prescriptions/Med Rec: Levofloxacin [Levaquin] 750 mg PO DAILY 5 Days #5 tablet Lisinopril 20 mg PO DAILY 30 Days #30 tablet Home Medications: Home Meds Carbidopa/Levodopa [Carbidopa-Levodopa 25-100 Tab] 25 - 100 mg PO 5XDAY [History] Donepezil [Aricept] 5 mg PO DAILY@1200 03/18/19 [History] Entacapone 200 mg PO 5XDAY 03/18/19 [History] QUEtiapine [SEROquel] 50 mg PO BEDTIME 03/18/19 [History] atorvaSTATin [Lipitor] 10 mg PO BEDTIME 03/18/19 [History] Aspirin [Adult Low Dose Aspirin EC] 81 mg PO DAILY 03/19/19 [History] Donepezil [Aricept] 5 mg PO BEDTIME PRN 03/19/19 [History] Rasagiline Mesylate 1 mg PO DAILY@1200 03/19/19 [History] Levofloxacin [Levaquin] 750 mg PO DAILY 5 Days #5 tablet 03/21/19 [Rx] Lisinopril 20 mg PO DAILY 30 Days #30 tablet 03/21/19 [Rx] Patient Handouts: Lisinopril oral solution, Levofloxacin tablets, Syncope, Easy -to-Read Referrals: Jose M Navas MD [Primary Care Provider] - 03/27/19 10:30 am - Discharge Summary/Plan Comment DC Time >30 min.: No - Patient Data Vitals - Most Recent: Last Vital Signs Temp 98.1 F 03/21/19 08:00 Pulse 91 03/21/19 08:00 Resp 17 03/21/19 08:00 BP 149/88 H 03/21/19 08:41 Pulse Ox 92 L 03/21/19 08:00 Orthostatic Blood Pressure [ 159/69 Standing] Orthostatic Blood Pressure [ 119/66 Sitting] Orthostatic Blood Pressure [ 133/70 Supine] Weight - Most Recent: 90.718 kg I&O - Last 24 hours: Intake & Output 03/20/19 03/21/19 03/21/19 22:59 06:59 14:59 Intake Total 750 1325 Output Total 500 600 Balance 250 725 Lab Results - Last 24 hrs: Laboratory Results - last 24 hr 03/20/19 03/21/19 03/21/19 Range/Units 05:13 06:10 06:20 WBC 15.48 H (4.0-11.0) K/uL RBC 4.82 (4.50-5.90) M/uL Hgb 15.1 (13.0-17.0) g/dL Hct 45.0 (38.0-50.0) % MCV 93.4 (80.0-98.0) fL MCH 31.3 (27.0-32.0) pg MCHC 33.6 (31.0-37.0) g/dL RDW Std Deviation 52.2 (28.0-62.0) fl RDW Coeff of Alea 15 (11.0-15.0) % Plt Count 582 H (150-400) K/uL MPV 9.80 (7.40-12.00) fL Neut % (Auto) 80.7 H (48.0-80.0) % Lymph % (Auto) 8.5 L (16.0-40.0) % [place] % (Auto) 9.0 (0.0-15.0) % Eos % (Auto) 1.5 (0.0-7.0) % Baso % (Auto) 0.3 (0.0-1.5) % Neut # (Auto) 12.5 H (1.4-5.7) K/uL Lymph # (Auto) 1.3 (0.6-2.4) K/uL [place] # (Auto) 1.4 H (0.0-0.8) K/uL Eos # (Auto) 0.2 (0.0-0.7) K/uL Baso # (Auto) 0.1 (0.0-0.1) K/uL Nucleated RBC % 0.0 /100WBC Nucleated RBCs # 0 K/uL Sodium (136-148) mmol/L Potassium (3.5-5.1) mmol/L Chloride (98-107) mmol/L Carbon Dioxide (21.0-32.0) mmol/L BUN (7.0-18.0) mg/dL Creatinine (0.8-1.3) mg/dL Est Cr Clr Drug Dosing mL/min Estimated GFR (MDRD) ml/min Glucose (74-106) mg/dL Calcium (8.5-10.1) mg/dL Magnesium 1.7 L 1.9 (1.8-2.4) mg/dL 03/21/19 Range/Units 06:20 WBC (4.0-11.0) K/uL RBC (4.50-5.90) M/uL Hgb (13.0-17.0) g/dL Hct (38.0-50.0) % MCV (80.0-98.0) fL MCH (27.0-32.0) pg MCHC (31.0-37.0) g/dL RDW Std Deviation (28.0-62.0) fl RDW Coeff of Alea (11.0-15.0) % Plt Count (150-400) K/uL MPV (7.40-12.00) fL Neut % (Auto) (48.0-80.0) % Lymph % (Auto) (16.0-40.0) % [place] % (Auto) (0.0-15.0) % Eos % (Auto) (0.0-7.0) % Baso % (Auto) (0.0-1.5) % Neut # (Auto) (1.4-5.7) K/uL Lymph # (Auto) (0.6-2.4) K/uL [place] # (Auto) (0.0-0.8) K/uL Eos # (Auto) (0.0-0.7) K/uL Baso # (Auto) (0.0-0.1) K/uL Nucleated RBC % /100WBC Nucleated RBCs # K/uL Sodium 143 (136-148) mmol/L Potassium 4.0 (3.5-5.1) mmol/L Chloride 107 (98-107) mmol/L Carbon Dioxide 25.9 (21.0-32.0) mmol/L BUN 12 (7.0-18.0) mg/dL Creatinine 1.2 (0.8-1.3) mg/dL Est Cr Clr Drug Dosing 47.93 mL/min Estimated GFR (MDRD) 57.5 ml/min Glucose 105 (74-106) mg/dL Calcium 8.8 (8.5-10.1) mg/dL Magnesium (1.8-2.4) mg/dL Med Orders - Current: Current Medications Acetaminophen (Tylenol) 650 mg PO Q4H PRN PRN Reason: Pain Carbidopa/Levodopa (Sinemet 25-100 Mg) 1 tab PO 0700,1000,1300,1600 [facility] Last Admin: 03/21/19 12:33 Dose: 1 tab Carbidopa/Levodopa (Sinemet 25-100 Mg) 1 tab PO 1900 [facility] Last Admin: 03/20/19 18:17 Dose: 1 tab Donepezil HCl (Aricept) 5 mg PO DAILY@1200 [facility] Last Admin: 03/21/19 12:33 Dose: 5 mg Donepezil HCl (Aricept) 5 mg PO BEDTIME PRN PRN Reason: MEMORY Levofloxacin/Dextrose 750 mg/ (Premix) 150 mls @ 100 mls/hr IV Q24H [facility] Last Admin: 03/21/19 09:44 Dose: 100 mls/hr Lisinopril (Prinivil) 10 mg PO DAILY [facility] Last Admin: 03/21/19 08:41 Dose: 10 mg Ondansetron HCl (Zofran Odt) 4 mg PO Q4H PRN PRN Reason: Nausea Last Admin: 03/21/19 08:41 Dose: 4 mg Entacapone 200 Mg 1 each PO 0700,1000,1300,1600 [facility] Last Admin: 03/21/19 12:33 Dose: 1 each Entacapone 200 Mg 0 each PO 1900 [facility] Last Admin: 03/20/19 18:17 Dose: 1 each Rasagiline Mesylate [Rasagiline Mesylate ] 1 Mg 1 each PO DAILY@1200 [facility] Last Admin: 03/21/19 12:33 Dose: 1 each Quetiapine Fumarate (Seroquel) 50 mg PO BEDTIME [facility] Last Admin: 03/20/19 20:28 Dose: 50 mg Sodium Chloride (Saline Flush) 10 ml FLUSH ASDIRECTED PRN PRN Reason: Keep Vein Open Sodium Chloride (Saline Flush) 2.5 ml FLUSH ASDIRECTED PRN PRN Reason: Keep Vein Open Discontinued Medications Donepezil HCl (Aricept) 5 mg PO BID [facility] Sodium Chloride (Normal Saline) 1,000 mls @ 100 mls/hr IV ASDIRECTED [facility] Last Admin: 03/19/19 06:33 Dose: 100 mls/hr Sodium Chloride (Normal Saline) 1,000 mls @ 75 mls/hr IV ASDIRECTED [facility] Stop: 03/21/19 00:49 Last Admin: 03/20/19 12:03 Dose: 75 mls/hr Magnesium Sulfate 2 gm/ Premix 50 mls @ 25 mls/hr IV ONETIME ONE Stop: 03/20/19 17:22 Last Admin: 03/20/19 16:12 Dose: 25 mls/hr Ondansetron HCl (Zofran) 4 mg IVPUSH ONETIME ONE Stop: 03/18/19 22:25 Last Admin: 03/18/19 22:57 Dose: 4 mg <Frank Pretty - Last Filed: 03/24/19 11:30> Discharge Summary - Hospital Course HPI Initial Comments: I have seen and evaluated the patient and agree with the residents note unless specified in my note - Referral to Home Health Primary Care Physician: Jose M Navas MD - Patient Summary/Data Consults: Consultations 03/20/19 10:40 Consult to Home Health [CONS] Routine Consult to Physical Therapy [PT Evaluation and Treatment] [CONS] Routine - Patient Data Vitals - Most Recent: Last Vital Signs Temp 36.7 C 03/21/19 12:00 Pulse 105 H 03/21/19 12:00 Resp 20 03/21/19 12:00 BP 167/85 H 03/21/19 12:00 Pulse Ox 95 03/21/19 12:00 Orthostatic Blood Pressure [ 159/69 Standing] Orthostatic Blood Pressure [ 119/66 Sitting] Orthostatic Blood Pressure [ 133/70 Supine] Med Orders - Current: Current Medications Discontinued Medications Acetaminophen (Tylenol) 650 mg PO Q4H PRN PRN Reason: Pain Carbidopa/Levodopa (Sinemet 25-100 Mg) 1 tab PO 0700,1000,1300,1600 [facility] Last Admin: 03/21/19 12:33 Dose: 1 tab Carbidopa/Levodopa (Sinemet 25-100 Mg) 1 tab PO 1900 [facility] Last Admin: 03/20/19 18:17 Dose: 1 tab Donepezil HCl (Aricept) 5 mg PO BID [facility] Donepezil HCl (Aricept) 5 mg PO DAILY@1200 [facility] Last Admin: 03/21/19 12:33 Dose: 5 mg Donepezil HCl (Aricept) 5 mg PO BEDTIME PRN PRN Reason: MEMORY Sodium Chloride (Normal Saline) 1,000 mls @ 100 mls/hr IV ASDIRECTED [facility] Last Admin: 03/19/19 06:33 Dose: 100 mls/hr Levofloxacin/Dextrose 750 mg/ (Premix) 150 mls @ 100 mls/hr IV Q24H [facility] Last Admin: 03/21/19 09:44 Dose: 100 mls/hr Sodium Chloride (Normal Saline) 1,000 mls @ 75 mls/hr IV ASDIRECTED [facility] Stop: 03/21/19 00:49 Last Admin: 03/20/19 12:03 Dose: 75 mls/hr Magnesium Sulfate 2 gm/ Premix 50 mls @ 25 mls/hr IV ONETIME ONE Stop: 03/20/19 17:22 Last Admin: 03/20/19 16:12 Dose: 25 mls/hr Influenza Virus Vaccine (Fluzone High-Dose 2018- Syringe) 180 mcg IM .ONCE ONE Stop: 03/21/19 14:22 Lisinopril (Prinivil) 10 mg PO DAILY [facility] Last Admin: 03/21/19 08:41 Dose: 10 mg Ondansetron HCl (Zofran) 4 mg IVPUSH ONETIME ONE Stop: 03/18/19 22:25 Last Admin: 03/18/19 22:57 Dose: 4 mg Ondansetron HCl (Zofran Odt) 4 mg PO Q4H PRN PRN Reason: Nausea Last Admin: 03/21/19 08:41 Dose: 4 mg Entacapone 200 Mg 1 each PO 0700,1000,1300,1600 [facility] Last Admin: 03/21/19 12:33 Dose: 1 each Entacapone 200 Mg 0 each PO 1900 [facility] Last Admin: 03/20/19 18:17 Dose: 1 each Rasagiline Mesylate [Rasagiline Mesylate ] 1 Mg 1 each PO DAILY@1200 [facility] Last Admin: 03/21/19 12:33 Dose: 1 each Quetiapine Fumarate (Seroquel) 50 mg PO BEDTIME [facility] Last Admin: 03/20/19 20:28 Dose: 50 mg Sodium Chloride (Saline Flush) 10 ml FLUSH ASDIRECTED PRN PRN Reason: Keep Vein Open Sodium Chloride (Saline Flush) 2.5 ml FLUSH ASDIRECTED PRN PRN Reason: Keep Vein Open
== END 2019-03-21 15:18 | disposition home or self-care (01) ==
LOC: MW.ED 22:05 → MW.MS 23:51
PROVIDERS: ADMIT Internal Medicine; ATTEND Internal Medicine
DX: R55 Syncope and collapse (principal); I10 Essential (primary) hypertension; E78.00 Pure hypercholesterolemia, unspecified; M19.90 Unspecified osteoarthritis, unspecified site; G20 Parkinson's disease; R26.81 Unsteadiness on feet; E87.5 Hyperkalemia
CPT/HCPCS: 36415; 70450; 71045; 80048; 80053; 81003; 82150; 83605; 83690; 83735; 84443; 84484; 85025; 85610; 87804; 93005; 96360; 97162; 97530; 99285; A9270; G0008; J1956; J2405; J3475; J7030

== ENCOUNTER 2019-12-29 15:45 | Emergency (ER) | payer MEDICARE, OTHER ==
[2019-12-29] MEDS ORDERED: Sodium Chloride 0.9% 10 ML Syringe FLUSH PRN (15:50)
[2019-12-29] MEDS ORDERED: Sodium Chloride 0.9% 2.5 ML Syringe FLUSH PRN (15:50)
--- NOTE | 2019-12-29 16:12 | EDM.PDOC ---
ED HPI GENERAL MEDICAL PROBLEM - General Chief Complaint: Neuro Symptoms/Deficits Stated Complaint: EMS ARRIVAL Time Seen by Provider: 12/29/19 15:50 Source of Information: Reports: EMS, Family History Limitations: Reports: Respiratory Distress - History of Present Illness INITIAL COMMENTS - FREE TEXT/NARRATIVE: 84-year-old male past medical history of Parkinson's disease, hypertension, hyperlipidemia presenting with concern for stroke. Brought in as a stroke code called by EMS. Last known well approximately 1430 hrs. this afternoon. Family members were concerned because the patient began having difficulty speaking and appeared to have weakness in the right upper extremity. When paramedics arrived, the patient was able to only answer 1 word at a time to simple questi ons and had obvious right upper extremity weakness. Blood glucose level was normal for paramedics. No history of recent illness. Upon arrival the emergency department, the patient is totally aphasic and unable to participate in the HPI. ROS: A 10-point review of systems was negative, except as noted in the HPI (or in the ROS section of this note). Past medical history: Reviewed, no additional pertinent history. Surgical history: Reviewed in system, no additional pertinent history. Social history: Reviewed in system, no additional pertinent history. Family history: Reviewed in system, no additional pertinent history. PHYSICAL EXAM Vital signs reviewed. Nursing notes reviewed. Constitutional: Awake, alert. Head: Normocephalic, atraumatic. Eyes: EOMI, conjunctiva normal, no discharge, no scleral icterus. Ears, Nose, Throat: External ears and nose normal, moist oral mucosa. Cardiovascular: 2+ radial pulse, capillary refill less than 2 seconds. Pulmonary: normal work of breathing, no accessory muscle use. Abdomen/GI: Soft, nontender, nondistended, no guarding or rigidity, no masses. Musculoskeletal: No deformities. Integumentary: Appropriate color for ethnicity, warm, dry, no pallor or jaundice, no rash. Neurologic: Alert, totally aphasic. 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 No strength in right upper extremity. Gross left-sided facial droop. Fixed leftward gaze deviation. Weak movement of bilateral lower extremities, unable to follow commands with lower extremities. No tremor or seizure activity. Psychiatric: Unable to assess. - Related Data Allergies Allergy/AdvReac Type Severity Reaction Status Date / Time No Known Allergies Allergy Verified 03/19/19 00:55 Home Meds: Home Meds Carbidopa/Levodopa [Carbidopa-Levodopa 25-100 Tab] 25 - 100 mg PO 5XDAY 03/18/19 [History] Donepezil [Aricept] 5 mg PO DAILY@1200 03/18/19 [History] Entacapone 200 mg PO 5XDAY 03/18/19 [History] QUEtiapine [SEROquel] 50 mg PO BEDTIME 03/18/19 [History] atorvaSTATin [Lipitor] 10 mg PO BEDTIME 03/18/19 [History] Aspirin [Adult Low Dose Aspirin EC] 81 mg PO DAILY 03/19/19 [History] Donepezil [Aricept] 5 mg PO BEDTIME PRN 03/19/19 [History] Rasagiline Mesylate 1 mg PO DAILY@1200 03/19/19 [History] levoFLOXacin [Levaquin] 750 mg PO DAILY 5 Days #5 tablet 03/21/19 [Rx] lisinopriL [Lisinopril] 20 mg PO DAILY 30 Days #30 tablet 03/21/19 [Rx] Past Medical History HEENT History: Reports: Macular Degeneration Cardiovascular History: Reports: High Cholesterol, Hypertension, Syncope Respiratory History: Reports: None Gastrointestinal History: Reports: Other (See Below) Other Gastrointestinal History: Hernia Genitourinary History: Reports: None Musculoskeletal History: Reports: Osteoarthritis Neurological History: Reports: Parkinson's Psychiatric History: Reports: None Endocrine/Metabolic History: Reports: None Insulin Pump Model and City Marshal: None Hematologic History: Reports: None Immunologic History: Reports: None Oncologic (Cancer) History: Reports: None Dermatologic History: Reports: None - Infectious Disease History Infectious Disease History: Reports: None - Past Surgical History Head Surgeries/Procedures: Reports: None HEENT Surgical History: Reports: Other (See Below) Other HEENT Surgeries/Procedures: Tooth extraction GI Surgical History: Reports: Hernia Repair/Other Social & Family History - Family History Family Medical History: Noncontributory - Caffeine Use Caffeine Use: Reports: Coffee, Soda ED ROS GENERAL - Review of Systems Review Of Systems: Unable To Obtain Reason Not Obtained: Aphasic/stroke ED EXAM, NEURO - Physical Exam Exam: See Below Course - Vital Signs Text/Narrative:: 84-year-old male brought in with stroke symptoms. Upon arrival, obvious left- sided facial droop, aphasic, right upper extremity weakness. Stroke code was declared prior to ambulance arrival. IV access was established and labs were sent. Taken to CT scanner, noncontrast head CT shows no acute findings, no intracranial hemorrhage or hypodensity noted. Back to the emergency department room. Obtained twelve-lead EKG, showing no acute ischemia. NIHSS=38. I did speak with the patient's son in the waiting room, confirmed no contraindications to TPA and family consented to TPA and aeromedical transport [facility]. Labs show mild leukocytosis. Normal coagulation markers. Normal lipase. Negative troponin, reassuring metabolic panel. CXR clear. Noncontrast head CT shows no acute findings. CTA neck unremarkable. 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 Patient was given IV bolus and maintenance infusion of IV TPA. Aeromedical transport was activated. We attempted to obtain acceptance for transfer at multiple hospitals before we are able to secure acceptance at [facility] in [place]. I spoke with the accepting neurointerventionalist physician who agrees to accept the transfer. Transferred to the EMS crew in good condition. - Orders/Labs/Meds Orders: Active Orders 24 hr Category Date Time Status Assess Neurological Status [RC] CONTINUOUS Care 12/29/19 16:11 Active Cardiac Monitoring [RC] . DIRECTED Care 12/29/19 15:50 Active EKG Documentation Completion [RC] STAT Care 12/29/19 15:50 Active Height and Weight [RC] UPON Care 12/29/19 16:11 Active NIH Stroke Scale [RC] STAT Care 12/29/19 16:11 Active Nursing Bedside Swallow Screen [RC] STAT Care 12/29/19 16:11 Active Oxygen Therapy, ED [RC] ASDIRECTED Care 12/29/19 16:11 Active Pulse Oximetry [RC] ASDIRECTED Care 12/29/19 15:50 Active Vital Signs [RC] Q15M Care 12/29/19 16:11 Active Nothing Per Oral Diet [DIET] Diet 12/29/19 Lunch Active Sodium Chloride 0.9% [Saline Flush] Med 12/29/19 15:50 Active 10 ml FLUSH ASDIRECTED PRN Sodium Chloride 0.9% [Saline Flush] Med 12/29/19 15:50 Active 2.5 ml FLUSH ASDIRECTED PRN Saline Lock Insert [OM.PC] Stat Oth 12/29/19 15:50 Ordered Medication Orders Sodium Chloride (Saline Flush) 10 ml FLUSH ASDIRECTED PRN PRN Reason: Keep Vein Open Sodium Chloride (Saline Flush) 2.5 ml FLUSH ASDIRECTED PRN PRN Reason: Keep Vein Open Labs: Laboratory Tests 12/29/19 12/29/19 12/29/19 Range/Units 15:50 15:50 15:50 WBC 12.97 H (4.0-11.0) K/uL RBC 5.18 (4.50-5.90) M/uL Hgb 16.6 (13.0-17.0) g/dL Hct 47.5 (38.0-50.0) % MCV 91.7 (80.0-98.0) fL MCH 32.0 (27.0-32.0) pg MCHC 34.9 (31.0-37.0) g/dL RDW Std Deviation 48.3 (28.0-62.0) fl RDW Coeff of Alea 14 (11.0-15.0) % Plt Count 897 H (150-400) K/uL MPV 9.70 (7.40-12.00) fL Neut % (Auto) 78.5 (48.0-80.0) % Lymph % (Auto) 10.9 L (16.0-40.0) % [place] % (Auto) 9.6 (0.0-15.0) % Eos % (Auto) 0.6 (0.0-7.0) % Baso % (Auto) 0.4 (0.0-1.5) % Neut # (Auto) 10.2 H (1.4-5.7) K/uL Lymph # (Auto) 1.4 (0.6-2.4) K/uL [place] # (Auto) 1.3 H (0.0-0.8) K/uL Eos # (Auto) 0.1 (0.0-0.7) K/uL Baso # (Auto) 0.1 (0.0-0.1) K/uL Nucleated RBC % 0.0 /100WBC Nucleated RBCs # 0 K/uL INR 1.06 APTT 28.0 (18.6-31.3) SEC Lactate 1.8 (0.20-2.00) mmol/L Sodium (136-148) mmol/L Potassium (3.5-5.1) mmol/L Chloride (98-107) mmol/L Carbon Dioxide (21.0-32.0) mmol/L BUN (7.0-18.0) mg/dL Creatinine (0.8-1.3) mg/dL Est Cr Clr Drug Dosing Estimated GFR (MDRD) ml/min Glucose (74-106) mg/dL Calcium (8.5-10.1) mg/dL Total Bilirubin (0.2-1.0) mg/dL AST (15-37) IU/L ALT (14-63) IU/L Alkaline Phosphatase (46-116) U/L Troponin I (0.000-0.056) ng/mL Total Protein (6.4-8.2) g/dL Albumin (3.4-5.0) g/dL Globulin (2.6-4.0) g/dL Albumin/Globulin Ratio (0.9-1.6) / Range/Units 15:50 WBC (4.0-11.0) K/uL RBC (4.50-5.90) M/uL Hgb (13.0-17.0) g/dL Hct (38.0-50.0) % MCV (80.0-98.0) fL MCH (27.0-32.0) pg MCHC (31.0-37.0) g/dL RDW Std Deviation (28.0-62.0) fl RDW Coeff of Alea (11.0-15.0) % Plt Count (150-400) K/uL MPV (7.40-12.00) fL Neut % (Auto) (48.0-80.0) % Lymph % (Auto) (16.0-40.0) % [place] % (Auto) (0.0-15.0) % Eos % (Auto) (0.0-7.0) % Baso % (Auto) (0.0-1.5) % Neut # (Auto) (1.4-5.7) K/uL Lymph # (Auto) (0.6-2.4) K/uL [place] # (Auto) (0.0-0.8) K/uL Eos # (Auto) (0.0-0.7) K/uL Baso # (Auto) (0.0-0.1) K/uL Nucleated RBC % /100WBC Nucleated RBCs # K/uL INR APTT (18.6-31.3) SEC Lactate (0.20-2.00) mmol/L Sodium 137 (136-148) mmol/L Potassium 3.9 (3.5-5.1) mmol/L Chloride 100 (98-107) mmol/L Carbon Dioxide 20.5 L (21.0-32.0) mmol/L BUN 12 (7.0-18.0) mg/dL Creatinine 1.1 (0.8-1.3) mg/dL Est Cr Clr Drug Dosing TNP Estimated GFR (MDRD) > 60.0 ml/min Glucose 113 H (74-106) mg/dL Calcium 9.1 (8.5-10.1) mg/dL Total Bilirubin 0.8 (0.2-1.0) mg/dL AST 47 H (15-37) IU/L ALT 34 (14-63) IU/L Alkaline Phosphatase 132 H (46-116) U/L Troponin I < 0.050 (0.000-0.056) ng/mL Total Protein 7.2 (6.4-8.2) g/dL Albumin 3.6 (3.4-5.0) g/dL Globulin 3.6 (2.6-4.0) g/dL Albumin/Globulin Ratio 1.0 (0.9-1.6) Meds: Medications Generic Name Dose Route Start Last Admin Trade Name Freq PRN Reason Stop Dose Admin Sodium Chloride 10 ml 12/29/19 15:50 Saline Flush FLUSH ASDIRECTED PRN Keep Vein Open Sodium Chloride 2.5 ml 12/29/19 15:50 Saline Flush FLUSH ASDIRECTED PRN Keep Vein Open Discontinued Medications Generic Name Dose Route Start Last Admin Trade Name Freq PRN Reason Stop Dose Admin Alteplase, Recombinant Confirm 12/29/19 16:12 Activase Administered 12/29/19 16:13 Dose 100 mg .ROUTE .STK-MED ONE Departure - Departure Time of Disposition: 16:30 Disposition: DC/Tfer to Acute Hospital 02 Condition: Good Clinical Impression: Ischemic stroke - Discharge Information Referrals: Jose M Navas MD [Primary Care Provider] - Forms: ED Department Discharge Critical Care Note - Critical Care Note Total Time (mins): 45 Comments: Critical care time is exclusive of billable procedures and the time to perform these procedures. Critical care time was used to prevent vital system organ failure and deterioration. Critical care time includes bedside management and high-complexity decision making requiring my highest level of mental preparedness and attention. This includes reviewing the patient's chart and prior medical records, ordering and reviewing interpreting laboratory studies and imaging results, interpretation of vital signs and EKG, pulse oximetry, and discussion with the admitting team along with EMS and nursing staff. 45 minutes of critical care for acute ischemic stroke with gross neurologic deficits requiring aeromedical transport activation and IV systemic thrombolysis. - My Orders Last 24 Hours: My Active Orders 12/29/19 Lunch Nothing Per Oral Diet [DIET] 12/29/19 15:50 Cardiac Monitoring [RC] . DIRECTED EKG Documentation Completion [RC] STAT Pulse Oximetry [RC] ASDIRECTED Sodium Chloride 0.9% [Saline Flush] 10 ml FLUSH ASDIRECTED PRN Sodium Chloride 0.9% [Saline Flush] 2.5 ml FLUSH ASDIRECTED PRN Saline Lock Insert [OM.PC] Stat 12/29/19 16:11 Assess Neurological Status [RC] CONTINUOUS Height and Weight [RC] UPON NIH Stroke Scale [RC] STAT Nursing Bedside Swallow Screen [RC] STAT Oxygen Therapy, ED [RC] ASDIRECTED Vital Signs [RC] Q15M - Assessment/Plan Last 24 Hours: My Active Orders 12/29/19 Lunch Nothing Per Oral Diet [DIET] 12/29/19 15:50 Cardiac Monitoring [RC] . DIRECTED EKG Documentation Completion [RC] STAT Pulse Oximetry [RC] ASDIRECTED Sodium Chloride 0.9% [Saline Flush] 10 ml FLUSH ASDIRECTED PRN Sodium Chloride 0.9% [Saline Flush] 2.5 ml FLUSH ASDIRECTED PRN Saline Lock Insert [OM.PC] Stat 12/29/19 16:11 Assess Neurological Status [RC] CONTINUOUS Height and Weight [RC] UPON NIH Stroke Scale [RC] STAT Nursing Bedside Swallow Screen [RC] STAT Oxygen Therapy, ED [RC] ASDIRECTED Vital Signs [RC] Q15M
--- NOTE | 2019-12-29 16:19 | CT ---
Head CT Technique: Multiple axial sections through the brain were obtained. Intravenous contrast was not utilized. Comparison: Prior head CT study of 03/18/19. Findings: Ventricles along with basal cisterns and sulci of the convexities are moderately prominent. Diminished density is noted within the periventricular white matter compatible with small vessel ischemic demyelination change. No abnormal parenchymal densities are seen. No evidence of intracranial hemorrhage is seen. No midline shift or mass-effect is seen. Bone window settings were reviewed which shows no acute calvarial abnormality. Visualized mastoid sinuses are clear. Mucosal thickening and probable retention cyst is seen within right maxillary sinus. Impression: 1. Senescent change and chronic appearing paranasal sinus findings. 2. No acute intracranial abnormality is appreciated. Diagnostic code #3
[2019-12-29] MEDS ORDERED: ALTEPLASE IV STA (16:30)
[2019-12-29] MEDS ORDERED: INFUSION IV STA (16:30)
[2019-12-29 16:39] LABS: BLOOD UREA NITROGEN,BUN 12 mg/dL (7.0-18.0); CARBON DIOXIDE,CO2 20.5 mmol/L (21.0-32.0); CHLORIDE,CL 100 mmol/L (98-107); GLUCOSE RANDOM 113 mg/dL (74-106); POTASSIUM,K 3.9 mmol/L (3.5-5.1); SODIUM,NA 137 mmol/L (136-148)
--- NOTE | 2019-12-29 16:43 | CT ---
CT angiogram of brain Technique: Multiple axial section through the brain were obtained. Intravenous contrast was utilized. Study performed as a CT angiogram protocol. Findings: Motion artifact is noted. Proximal left middle cerebral artery is occluded. Right middle cerebral artery is patent. Carotid siphon is patent. Anterior carotid arteries are patent. Both distal vertebral arteries are patent. Basilar artery is patent into the posterior cerebral arteries. Proximal left posterior cerebral artery shows mild narrowing. Impression: 1. 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 2. Mild atherosclerosis irregularity within the proximal left posterior cerebral artery. Diagnostic code #5 This report was dictated in MDT
--- NOTE | 2019-12-29 16:44 | CT ---
CT angiogram of neck Technique: Multiple axial sections through the neck were obtained. Study performed as a CT angiogram protocol and contrast therefore given during the arterial phase. Multiple MIP images were obtained. Findings: Common carotid arteries are patent on both sides. Mild atheromatous irregularity is noted within the carotid bulb. Internal carotid arteries show no focal stenosis. External carotid artery show no focal stenosis. Both vertebral arteries are patent into the basilar artery. Impression: 1. Mild atheromatous irregularity within both carotid bulbs. 2. No focal stenosis or occlusion is noted within the common carotid arteries, internal carotid arteries, external carotid arteries or vertebral arteries. Diagnostic code #2 This report was dictated in [facility]
--- NOTE | 2019-12-29 16:46 | CR ---
Chest: Portable view of the chest was obtained. Comparison: Prior chest x-ray of 03/20/19. Scattered areas of atelectasis are seen within both lung bases. Upper lungs are clear. Heart size is normal. Tortuous thoracic aorta is noted. Bony structures are grossly intact. Impression: 1. Areas of atelectasis within both lung bases. 2. Nothing acute is otherwise seen. Diagnostic code #3 This report was dictated in MDT
[2019-12-29] MEDS ORDERED: Iopamidol 755 MG/ML 500 ML Multipack Bottle IVPUSH STA (19:12)
[2019-12-30] MEDS ORDERED: ALTEPLASE IV STA (10:38)
[2019-12-30] MEDS ORDERED: INFUSION IV STA (10:38)
== END 2019-12-29 17:11 ==
LOC: MW.ED 15:45
DX: I63.9 Cerebral infarction, unspecified (principal); R47.01 Aphasia; R29.810 Facial weakness; G81.91 Hemiplegia, unspecified affecting right dominant side; R29.738 NIHSS score 38; G20 Parkinson's disease; I10 Essential (primary) hypertension; E78.00 Pure hypercholesterolemia, unspecified; M19.90 Unspecified osteoarthritis, unspecified site; Z79.899 Other long term (current) drug therapy; Z79.82 Long term (current) use of aspirin
CPT/HCPCS: 36415; 37195; 70450; 70496; 70498; 71045; 80053; 83605; 84484; 85025; 85610; 85730; 93005; 99291; J2997; Q9967